=== PATIENT | female | born 1955 | race Caucasian/White ===

== ENCOUNTER → 2018-01-23 | Outpatient (CLI) | payer OTHER | END | disposition home or self-care (01) | LOC: CDC 08:13 | DX: Z01.810 Encounter for preprocedural cardiovascular examination (principal); N63.20 Unspecified lump in the left breast, unspecified quadrant | CPT/HCPCS: 93000 ==

== ENCOUNTER 2018-02-03 10:17 | Day surgery (SDC) | payer OTHER ==
[~2018-02-03] VITALS: Ht 170.2 cm; Wt 72.6 kg
[~2018-02-03 10:17] MED LIST: SYNTHROID137 MCG PO
[2018-02-03 10:51] VITALS: BP 119/57
[2018-02-03] MEDS ORDERED: HYDROCODON-ACE1 EAC7 PO (13:10)
[2018-02-03 13:53] VITALS: BP 113/69
[2018-02-03 14:28] VITALS: BP 112/65
== END 2018-02-03 14:40 | disposition home or self-care (01) ==
LOC: SDC
PROC: 0HBUXZX (ICD-10-PCS; principal; 2018-02-03)
DX: N60.82 Other benign mammary dysplasias of left breast (principal); Z80.3 Family history of malignant neoplasm of breast; Z88.0 Allergy status to penicillin; Z88.8 Allergy status to other drugs, medicaments and biological substances
CPT/HCPCS: 88305; J0131; J1100; J3010; S0020